=== PATIENT | female | born 1985 | race Caucasian/White ===

== ENCOUNTER 2021-01-29 07:45 | Emergency (ER) | payer OTHER, SELFPAY ==
[2021-01-29 07:53] VITALS: BP 118/88; PULSE 84; RESP 18; TEMP 36.5; O2SAT 98
--- NOTE | 2021-01-29 07:53 | ED.GENADULT ---
HPI - General Adult General Chief complaint: Extremity Injury, Lower Stated complaint: left facial swelling, left leg pain Time Seen by Provider: 01/29/21 07:53 Source: patient Mode of arrival: ambulatory Limitations: no limitations History of Present Illness HPI narrative: Patient presents with chronic left knee weakness, status post surgery at 19 years old. No recent trauma or injury. Patient also complaining of intermittent rash different parts of the body including the face the pubic area and left groin area started 2-1/2 months ago. Patient claiming having possible pubic lice after having vacation at [place] with possible invested house. Patient also complaining of possible lump at the right breast, never had mammogram. Patient denies any fever, chills, nausea, vomiting, diarrhea, constipation, urinary symptoms. Related Data Home Medications Medication Instructions Recorded Confirmed levonorgestrel 20 mcg/24 hours (7 1 device I-UTERINE ONCE 12/16/19 12/16/19 yrs) 52 mg intrauterine device Allergies Allergy/AdvReac Type Severity Reaction Status Date / Time No Known Allergies Allergy Verified 01/29/21 08:04 Review of Systems Review of Systems: CONSTITUTIONAL: Denies fever, chills, or sweats. EYES: Denies visual changes, redness, or discharge. ENT: Denies rhinorrhea, congestion, sore throat, or otalgia. CARDIOVASCULAR: Denies chest pain, palpitations, or edema. RESPIRATORY: Denies cough or dyspnea. GASTROINTESTINAL: Denies abdominal pain, nausea, vomiting, or diarrhea. GENITOURINARY: Denies dysuria or hematuria. SKIN: Denies rash or itching. MUSCULOSKELETAL: Denies back pain, joint pain, or myalgia. NEUROLOGIC: Denies headache, numbness, or weakness. PSYCHIATRIC: Denies anxiety or depression. [facility] Past Medical History Medical History (Updated 01/29/21 @ 09:24 by Brown Marinelli MD) History of broken nose IBS (irritable bowel syndrome) MVP (mitral valve prolapse) Surgical History Surgical History H/O left knee surgery S/P MVR (mitral valve repair) Family History Family History Mother Hypertension Hyperlipidemia Father Skin cancer Malignant neoplasm of prostate Grandparent Lung cancer Grandparent Kidney failure Social History Social History Smoking status: Never smoker Alcohol intake: current Drinks per week: 1 Substance use type: does not use Exam Narrative: General appearance: Well-developed, well-nourished Skin: Scattered rash, with honeycomb crust looks like staph infection. Head: Normocephalic, nontraumatic Eyes: Clear conjunctiva ENT: Oropharynx normal, ears normal, nose normal Neck: Supple, nontender Chest and respiratory: Airway patent, no respiratory distress, no accessory muscle use, breast exam showed no mass or lumps, no lymph node in the axillary area bilaterally Heart: Regular rate/rhythm Abdomen: Soft, nontender, no organomegaly, quiet bowel sounds Vascular: Normal peripheral pulses, normal capillary refill. Musculoskeletal: Left knee showed old surgical scar anteriorly, no bruises, no swelling, no deformity, no erythema or rash good range of motion Neurologic: Alert and oriented ?3, [employer] is normal as tested, no gross motor deficit Course Course Emergency Course: Stable Vital Signs Vital signs: Vital Signs Temperature 36.5 C 01/29/21 07:53 Pulse Rate 84 01/29/21 07:53 Respiratory Rate 18 01/29/21 07:53 Blood Pressure 118/88 01/29/21 07:53 Pulse Oximetry 98 01/29/21 07:53 Temperature 36.5 C 01/29/21 0
[2021-01-29 09:51] LABS: Basophils Percent Auto 0.8 % (0.2-1.2); Eosinophils Absolute Auto 0.1 K/mm3 (0-0.3); Eosinophils Percent Auto 1.9 % (0-4.4); Hematocrit 41.1 % (37.0-47.0); Hemoglobin 13.4 g/dL (12.0-15.0); Immature Granulocyte Absolute 0.01 K/mm3 (0.00-0.031); Immature Granulocyte Percent A 0.2 % (0-0.5); Lymphocytes Absolute Auto 1.29 K/mm3 (0.9-3.2); Lymphocytes Percent Auto 24.4 % (18.3-44.2); Mean Corpuscular HGB Conc 32.6 g/dl (32-36); Mean Corpuscular Hemoglobin 31.9 pg (26-34); Mean Corpuscular Volume 97.9 fl (80-100); Monocytes Absolute Auto 0.5 K/mm3 (0.1-0.6); Monocytes Percent Auto 9.7 % (2.6-8.5); Neutrophils Absolute Auto 3.3 K/mm3 (1.3-6.7); Platelet Count Result 215 k/mm3 (150-375); Red Cell Distribution Width 12.8 % (11.5-14.5); White Blood Count 5.3 K/mm3 (4.5-10.0)
[2021-01-29 09:54] LABS: Add Urine Microscopic? NO; Appearance Urine Clear (Clear); Bilirubin Urine Negative (Negative); Blood Urine Negative (Negative); Color Urine Straw (Yellow); Glucose Urine UA Negative (Negative); Ketones Urine Negative (Negative); Leukocyte Esterase Ur Negative LEU/UL (Negative); Nitrate Urine Negative (Negative); Protein Urine Negative (Negative); Urobilinogen Urine Negative mg/dL (<2.0)
[2021-01-29 10:03] LABS: Alanine Aminotransferase 15 U/L (4-35); Albumin Level 4.7 g/dL (3.5-5.1); Alkaline Phosphatase 72 U/L (38-126); Anion Gap 10 mmol/L (8-16); Aspartate Amino Transferase 22 U/L (14-36); Bilirubin,Total 0.6 mg/dL (0.2-1.3); Blood Urea Nitrogen 14 mg/dL (7-17); Calcium 9.2 mg/dL (8.4-10.2); Carbon Dioxide 26 mmol/L (22-30); Chloride 107 mmol/L (98-107); Estimated CRCL calculation 107 ml/min; Estimated Glomerular Filt Rate > 60; Glucose 92 mg/dL (65-110); Sodium 143 mmol/L (137-145)
[2021-01-29 11:01] VITALS: BP 100/72; PULSE 79; RESP 17; O2SAT 99
== END 2021-01-29 11:04 | disposition home or self-care (01) ==
PROVIDERS: Emergency Provider Emergency Medicine
DX: L08.9 Local infection of the skin and subcutaneous tissue, unspecified (principal); B96.89 Other specified bacterial agents as the cause of diseases classified elsewhere; M25.9 Joint disorder, unspecified
CPT/HCPCS: 36415; 80053; 81003; 81025; 85025; 99283

== ENCOUNTER 2024-05-02 13:01 | Outpatient (CLI) | payer SELFPAY ==
--- NOTE | ~2024-05-02 | US_ITS ---
EXAM: Focused ultrasound examination of the soft tissues of the anterior abdominal wall HISTORY: R19.00 - Intra-abdominal and pelvic swelling, mass and amadeo... TECHNIQUE: Sonographic evaluation of the soft tissues of the left axilla were performed assessing gra yscale appearance and color Doppler flow. COMPARISON: None. FINDINGS: Within the area of clinical concern is a bilobed anechoic avascular focus. This area measures 12.6 x 7.2 x 6.6 mm and 140.1 x 18.1 x 12.8 mm and demonstrates benign sonographic features. Sonographic evaluation of the remainder of the superficial soft tissues of the anterior lateral abdom inal wall (over the left upper hip) demonstrate benign fibrofatty and fibromuscular elements without a cystic or solid lesion of concern. IMPRESSION: Bilobed anechoic avascular focus with benign sonographic features, as detailed above. Reviewed, dictated and finalized at location [facility]. [facility]
== END 2024-05-02 13:02 | disposition home or self-care (01) ==
PROVIDERS: PCP Nurse Practitioner Adult Health; Visit Provider Nurse Practitioner Adult Health
DX: R19.00 Intra-abdominal and pelvic swelling, mass and lump, unspecified site (principal)
CPT/HCPCS: 76705